=== PATIENT | male | born 1985 | race Caucasian/White ===

== ENCOUNTER 2016-11-10 12:48 | Emergency (ER) | payer OTHER ==
[~2016-11-10] VITALS: Ht 175.3 cm; Wt 63.3 kg
[2016-11-10 12:50] VITALS: BP 149/84
== END 2016-11-10 14:37 | disposition home or self-care (01) ==
LOC: ED 13:20
DX: M25.511 Pain in right shoulder (principal)
CPT/HCPCS: 99284

== ENCOUNTER 2017-10-01 21:04 | Emergency (ER) | payer OTHER ==
[~2017-10-01] VITALS: Ht 175.3 cm; Wt 64.0 kg
[2017-10-01] MEDS ORDERED: KETOROLAC 30 MG/1 ML IM ONE (22:30)
[2017-10-01] MEDS ORDERED: METHOCARBAMOL 750 MG TABLET PO ONE (22:30)
[2017-10-01] MEDS ORDERED: KETOROLAC 30 MG/1 ML ONE (23:05)
[2017-10-01] MEDS ORDERED: METHOCARBAMOL 750 MG TABLET ONE (23:05)
[2017-10-02] MEDS ORDERED: OXYcodone/APAP 5/325MG TABLET PO ONE
[2017-10-02] MEDS ORDERED: OXYcodone/APAP 5/325MG TABLET ONE (00:48)
[2017-10-02 01:43] VITALS: BP 124/86
== END 2017-10-02 02:04 | disposition home or self-care (01) ==
LOC: ED 10-02 01:31
DX: S62.512A Displaced fracture of proximal phalanx of left thumb, initial encounter for closed fracture (principal); M48.56XA Collapsed vertebra, not elsewhere classified, lumbar region, initial encounter for fracture; M48.061 Spinal stenosis, lumbar region without neurogenic claudication; M62.830 Muscle spasm of back; F17.210 Nicotine dependence, cigarettes, uncomplicated; V89.2XXA Person injured in unspecified motor-vehicle accident, traffic, initial encounter; Y93.89 Activity, other specified; Y92.410 Unspecified street and highway as the place of occurrence of the external cause; Y99.8 Other external cause status
CPT/HCPCS: 29130; 72072; 72110; 72131; 73130; 73523; 96372; 99284; J1885